=== PATIENT | female | born 1935 | race Hispanic/Latino ===

== ENCOUNTER 2023-06-18 12:38 | Inpatient (IN) | payer OTHER ==
[~2023-06-18] VITALS: Ht 149.9 cm; Wt 45.8 kg
[2023-06-18] VITALS (28 sets, daily range): BP systolic 69–131; BP diastolic 28–80; PULSE 74–154; RESP 19–48; TEMP 98.8; O2SAT 100
[~2023-06-18 12:38] MED LIST: ASPI-1026 PO; CLOP-31 PO; LOSA100T59 PO
[2023-06-18] MEDS ORDERED: 0.9%NACL 1000ML 1,000 ML IV ONE (13:30)
[2023-06-18] MEDS ORDERED: ACETAMINOPHEN 500 MG TABLET PO ONE (13:30)
[2023-06-18 14:13] LABS: BASOPHILS # (AUTO) 0.07 K/uL (0.00-0.20); BASOPHILS % (AUTO) 0.5 % (0.0-5.0); EOSINOPHILS # (AUTO) 0.01 K/uL (0.00-0.70); EOSINOPHILS % (AUTO) 0.1 % (0.0-8.0); HEMATOCRIT 38.7 % (36-48); IMMATURE GRANULOCYTE ABSOLUTE 0.06 K/uL (0-1); LYMPHOCYTES # (AUTO) 0.7 K/uL (1.0-4.8); LYMPHOCYTES % (AUTO) 4.9 % (21.0-51.0); MEAN CORPUSCULAR HEMOGLOBIN 29.2 pg (27.0-33.0); MEAN CORPUSCULAR HGB CONC 33.9 g/dL (32.0-36.0); MEAN CORPUSCULAR VOLUME 86.4 fL (79-99); MONOCYTES # (AUTO) 0.6 K/uL (0.1-1.0); NEUTROPHILS # (AUTO) 12.3 K/uL (1.8-7.7); NEUTROPHILS % (AUTO) 90.1 % (40.0-77.0); PLATELET COUNT (AUTO) 202 K/uL (130-400); RED BLOOD CELL COUNT(AUTO) 4.48 MIL/uL (4.00-5.50); RED CELL DISTRIBUTION WIDTH 13.2 % (11.0-15.5); WHITE BLOOD COUNT (AUTO) 13.7 K/uL (4.8-10.8)
[2023-06-18 14:21] LABS: INR < 0.93 (0.85-1.15); PROTHROMBIN TIME 10.8 SEC (9.6-11.6)
[2023-06-18 14:23] LABS: PARTIAL THROMBOPLASTIN TIME 26.7 SEC (26.3-35.5)
[2023-06-18 14:30] LABS: CREATININE 1.7 mg/dL (0.5-1.5); POTASSIUM 3.8 mmol/L (3.5-5.1)
[2023-06-18 14:35] LABS: ALBUMIN 3.9 g/dL (3.5-5.0); BILIRUBIN,TOTAL 0.7 mg/dL (0.2-1.0); TOTAL PROTEIN, SERUM 7.7 g/dL (6.0-8.3)
[2023-06-18 15:22] LABS: SARS-CoV-2, RNA, NAAT NEGATIVE SARS CoV-2 (NEGATIVE)
[2023-06-18 15:24] LABS: ADD UA MICROSCOPIC YES; APPEARANCE,URINE HAZY (CLEAR); BILIRUBIN,URINE NEGATIVE (NEGATIVE); COLOR,URINE YELLOW (YELLOW); GLUCOSE, URINE (UA) NEGATIVE (NEGATIVE); KETONES,URINE NEGATIVE (NEGATIVE); LEUKOCYTE ESTERASE ,URINE 500 Leu/uL (NEGATIVE); NITRATE,URINE 1+ (NEGATIVE); OCCULT BLOOD,URINE NEGATIVE (NEGATIVE); PH,URINE 5.5 (5.0-8.0); PROTEIN,URINE 10 mg/dL (NEGATIVE); UROBILINOGEN,URINE 0.2 mg/dL (0.2-1.0)
[2023-06-18 15:26] LABS: BACTERIA,URINE MOD /HPF (None Seen); MUCUS,URINE RARE LPF (None Seen); RBC,URINE 0-1 /HPF (0-1); WBC,URINE >100 /HPF (0-1)
[2023-06-18 15:28] LABS: RAPID GROUP A STREP negative (NEGATIVE)
[2023-06-18] MEDS ORDERED: CEFTRIAXONE 1G VIAL IVPB ONE (15:30)
[2023-06-18] MEDS ORDERED: 0.9% NACL 500ML IV.SOLN 500 ML IV ONE (15:30)
[2023-06-18 15:32] LABS: INFLUENZA TYPE A Negative For Type A (NEGATIVE); INFLUENZA TYPE B Negative For Type B (NEGATIVE)
[2023-06-18] MEDS ORDERED: DiphenhydrAMINE HCL 50 MG/ML VIAL IV PRN (16:00)
[2023-06-18] MEDS ORDERED: KCL 20 MEQ ERTAB PO PRN (16:00)
[2023-06-18] MEDS ORDERED: GLUCAGON 1MG KIT 1 MG ML IM PRN (16:00)
[2023-06-18] MEDS ORDERED: GUAIFENESIN SUGAR-FREE 100 MG/5 ML UDCUP PO PRN (16:00)
[2023-06-18] MEDS ORDERED: ONDANSETRON 4MG INJ IV PRN (16:00)
[2023-06-18] MEDS ORDERED: ZOLPIDEM TARTRATE 5 MG TAB PO PRN (16:00)
[2023-06-18] MEDS ORDERED: LACTULOSE 20 GM/30 ML UDCUP PO PRN (16:00)
[2023-06-18] MEDS ORDERED: NITROGLYCERIN 0.4 MG SL TAB SL PRN (16:00)
[2023-06-18] MEDS ORDERED: DOCUSATE SODIUM 100 MG CAP PO PRN (16:00)
[2023-06-18] MEDS ORDERED: ACETAMINOPHEN 325 MG TAB PO PRN ×2 (16:00)
[2023-06-18] MEDS ORDERED: POLYETHYLENE GLYCOL 3350 17 GM POWD.PACK PO PRN (16:00)
[2023-06-18] MEDS ORDERED: DIPHENHYDRAMINE HCL 25 MG CAPSULE PO PRN (16:00)
[2023-06-18] MEDS ORDERED: ALPRAZOLAM 0.5 MG TABLET PO PRN (16:00)
[2023-06-18] MEDS ORDERED: MAGNESIUM 2GM PREMIX 50ML 50 ML IV PRN (16:00)
[2023-06-18] MEDS ORDERED: DEXTROSE 50%-WATER 50 ML DISP.SYRIN IV PRN (16:00)
[2023-06-18] MEDS ORDERED: POTASSIUM CHLORIDE 20MEQ/100ML 100 ML IV PRN ×2 (16:00)
[2023-06-18] MEDS ORDERED: GUAIFENESIN-DM 200/20 MG 10 ML PO PRN (16:00)
[2023-06-18] MEDS: LACTATED RINGERS 1000ML IV SCH (16:25)
[2023-06-18] MEDS: INSULIN HUMULIN R 100 UNIT/ML 3ML SQ SCH ×2 (16:30→21:00)
[2023-06-18] MEDS ORDERED: NOREPINEPHRIN 4MG/NS 250ML 250 ML IV ONE (16:36)
[2023-06-18] MEDS: CEFTRIAXONE 2GM VIAL IVPB SCH (19:31)
[2023-06-18] MEDS: DOXYCYCLINE 100MG+NS 250ML 250 ML IV SCH (19:31)
[2023-06-18] MEDS: POTASSIUM CHLORIDE 10% ELIXIR 20 MEQ/15 ML UDCUP PO PRN (19:32)
[2023-06-18] MEDS ORDERED: AMLO-258 PO (19:34)
[2023-06-18] MEDS ORDERED: HYDR50TA PO (19:35)
[2023-06-18] MEDS: NOREPINEPHRIN 4MG/NS 250ML 250 ML IV SCH ×2 (20:04→21:24)
[2023-06-18] MEDS: FAMOTIDINE 20MG VIAL IV SCH (21:00)
[2023-06-18] MEDS ORDERED: MAGNESIUM 2GM PREMIX 50ML 50 ML IV STA (22:55)
[2023-06-19] VITALS (70 sets, daily range): BP systolic 71–161; BP diastolic 31–85; PULSE 65–89; RESP 16–77; O2SAT 97–100
[2023-06-19] MEDS: ALBUMIN (HUMAN) 25% 50 ML IV SCH ×4 (00:25→18:29)
[2023-06-19 04:34] LABS: HEMOGLOBIN A1C 5.2 % (4.0-6.0)
[2023-06-19] MEDS: DOXYCYCLINE 100MG+NS 250ML 250 ML IV SCH ×2 (04:46→17:11)
[2023-06-19] MEDS: NOREPINEPHRIN 4MG/NS 250ML 250 ML IV SCH (04:48)
[2023-06-19 04:50] LABS: MAGNESIUM 2.6 mg/dL (1.80-2.40); THYROID STIMULATING HORMONE 0.44 uIU/mL (0.36-3.74)
[2023-06-19] MEDS: ENOXAPARIN SODIUM 30 MG/0.3 ML SQ SCH (11:54)
[2023-06-19] MEDS: LACTATED RINGERS 1000ML IV SCH (16:30)
[2023-06-19] MEDS: INSULIN HUMULIN R 100 UNIT/ML 3ML SQ SCH ×2 (16:30→19:32)
[2023-06-19] MEDS: CEFTRIAXONE 2GM VIAL IVPB SCH (17:12)
[2023-06-19] MEDS: FAMOTIDINE 20MG VIAL IV SCH (19:33)
[2023-06-20] VITALS (7 sets, daily range): BP systolic 114–164; BP diastolic 51–71; PULSE 71–80; RESP 14–18; O2SAT 99
[2023-06-20] MEDS: DOXYCYCLINE 100MG+NS 250ML 250 ML IV SCH ×2 (03:46→17:08)
[2023-06-20 04:48] LABS: BASOPHILS # (AUTO) 0.05 K/uL (0.00-0.20); BASOPHILS % (AUTO) 0.8 % (0.0-5.0); EOSINOPHILS # (AUTO) 0.01 K/uL (0.00-0.70); EOSINOPHILS % (AUTO) 0.2 % (0.0-8.0); IMMATURE GRANULOCYTE ABSOLUTE 0.02 K/uL (0-1); LYMPHOCYTES # (AUTO) 1.4 K/uL (1.0-4.8); LYMPHOCYTES % (AUTO) 21.6 % (21.0-51.0); MEAN CORPUSCULAR HEMOGLOBIN 28.5 pg (27.0-33.0); MEAN CORPUSCULAR HGB CONC 33.1 g/dL (32.0-36.0); MONOCYTES # (AUTO) 0.5 K/uL (0.1-1.0); MONOCYTES % (AUTO) 7.6 % (3.0-13.0); NEUTROPHILS # (AUTO) 4.5 K/uL (1.8-7.7); NEUTROPHILS % (AUTO) 69.5 % (40.0-77.0); PLATELET COUNT (AUTO) 149 K/uL (130-400); RED BLOOD CELL COUNT(AUTO) 3.72 MIL/uL (4.00-5.50); RED CELL DISTRIBUTION WIDTH 13.6 % (11.0-15.5); WHITE BLOOD COUNT (AUTO) 6.5 K/uL (4.8-10.8)
[2023-06-20 04:55] LABS: CREATININE 1.1 mg/dL (0.5-1.5); POTASSIUM 3.2 mmol/L (3.5-5.1)
[2023-06-20] MEDS: INSULIN HUMULIN R 100 UNIT/ML 3ML SQ SCH ×4 (06:48→19:54)
[2023-06-20] MEDS: ENOXAPARIN SODIUM 30 MG/0.3 ML SQ SCH ×2 (09:00→09:07)
[2023-06-20] MEDS: LACTATED RINGERS 1000ML IV SCH (16:30)
[2023-06-20] MEDS: CEFTRIAXONE 2GM VIAL IVPB SCH (17:10)
[2023-06-20] MEDS: POTASSIUM CHLORIDE 10% ELIXIR 20 MEQ/15 ML UDCUP PO PRN (18:30)
[2023-06-20] MEDS: FAMOTIDINE 20MG VIAL IV SCH (19:56)
[2023-06-21 03:00] VITALS: BP 92/51; PULSE 82; RESP 16
[2023-06-21] MEDS: DOXYCYCLINE 100MG+NS 250ML 250 ML IV SCH (04:04)
[2023-06-21] MEDS: INSULIN HUMULIN R 100 UNIT/ML 3ML SQ SCH ×2 (05:44→11:30)
[2023-06-21 05:52] LABS: POTASSIUM 3.6 mmol/L (3.5-5.1)
[2023-06-21 06:28] LABS: HEMATOCRIT 34.2 % (36-48); MEAN CORPUSCULAR HEMOGLOBIN 28.9 pg (27.0-33.0); MEAN CORPUSCULAR HGB CONC 33.3 g/dL (32.0-36.0); MEAN CORPUSCULAR VOLUME 86.6 fL (79-99); RED BLOOD CELL COUNT(AUTO) 3.95 MIL/uL (4.00-5.50); RED CELL DISTRIBUTION WIDTH 13.4 % (11.0-15.5); WHITE BLOOD COUNT (AUTO) 4.5 K/uL (4.8-10.8)
[2023-06-21 08:00] VITALS: BP 146/61; PULSE 76; RESP 18
[2023-06-21] MEDS: ENOXAPARIN SODIUM 30 MG/0.3 ML SQ SCH (09:51)
[2023-06-21 12:00] VITALS: BP 136/66; PULSE 75; RESP 18
[2023-06-21 14:11] LABS: ROCKY MT SPOTTED FEVER IGG <1:64 (Neg:<1:64); ROCKY MT SPOTTED FEVER IGM <1:64 (Neg:<1:64); TYPHUS FEVER AB IGG <1:64 (Neg:<1:64); TYPHUS FEVER AB IGM <1:64 (Neg:<1:64)
[2023-06-21] MEDS ORDERED: SODI650T PO (16:01)
[2023-06-21] MEDS ORDERED: SULF1TAB42 PO (16:01)
== END 2023-06-21 17:10 | disposition home or self-care (01) | DRG 871 ==
LOC: EDH 12:38 → EDHIP 15:54 → 2CH 21:07 → 3CH 06-19 11:50
PROVIDERS: ADMIT Internal Medicine Critical Care Medicine; ATTEND Internal Medicine Critical Care Medicine
DX: A41.9 Sepsis, unspecified organism (principal); R65.21 Severe sepsis with septic shock; N30.00 Acute cystitis without hematuria; Z16.24 Resistance to multiple antibiotics; I50.32 Chronic diastolic (congestive) heart failure; N17.9 Acute kidney failure, unspecified; I13.0 Hypertensive heart and chronic kidney disease with heart failure and stage 1 through stage 4 chronic kidney disease, or unspecified chronic kidney disease; Z20.822 Contact with and (suspected) exposure to COVID-19; B96.20 Unspecified Escherichia coli [E. coli] as the cause of diseases classified elsewhere; N18.30 Chronic kidney disease, stage 3 unspecified; E86.0 Dehydration; H91.93 Unspecified hearing loss, bilateral; Z86.73 Personal history of transient ischemic attack (TIA), and cerebral infarction without residual deficits
CPT/HCPCS: 36415; 70450; 71045; 72125; 74176; 80048; 80053; 81001; 82550; 82948; 83036; 83605; 83735; 84145; 84443; 84484; 85025; 85027; 85610; 85730; 86757; 87040; 87077; 87088; 87186; 87635; 87804; 87880; 93005; 99291; C9803; G0378; J0696; J1650; J3475; J3490; J7030; J7040; P9047